=== PATIENT | female | born 1985 | race American Indian/Alaskan Native ===

== ENCOUNTER 2016-09-02 12:33 | Emergency (ER) | payer SELFPAY ==
[2016-09-02 12:52] VITALS: BP 137/79
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
[2016-09-02 13:37] LABS: Creatine Kinase MB 1.3 ng/mL (0.0-4.0)
[2016-09-02 13:38] LABS: Creatine Kinase 266 units/L (30-135)
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
[2016-09-02] MEDS ORDERED: MOTRIN PO ONE (14:44)
[2016-09-02 14:54] LABS: Bilirubin,Urine NEG (Negative); Blood,Urine NEG (Negative); Ketones,Urine NEG (Negative); Leukocyte Esterase,Urine NEG (Negative); Mucus,Urine FEW /HPF; Nitrite,Urine NEG (Negative); Protein,Urine <15 mg/dL mg/dL (Negative); Urobilinogen,Urine < 2.0 mg/dL (<2.0)
== END 2016-09-02 16:20 | disposition home or self-care (01) ==
LOC: ED 12:33
DX: M54.5 Low back pain (principal); V49.49XA Driver injured in collision with other motor vehicles in traffic accident, initial encounter; Y93.9 Activity, unspecified; Y92.9 Unspecified place or not applicable; Y99.9 Unspecified external cause status
CPT/HCPCS: 36415; 81001; 81025; 82550; 82553; 84484; 93005; 93010; 99283

== ENCOUNTER 2018-01-01 08:11 | Emergency (ER) | payer MEDICAID ==
[2018-01-01 08:17] VITALS: BP 123/81
[2018-01-01] MEDS ORDERED: MOTRIN PO ONE (08:21)
--- NOTE | 2018-01-01 09:12 | XRay Report ---
RIGHT HIP, 2 views: History: Right hip pain. The bony architecture is intact without evidence of fracture or dislocation. No significant soft tissue abnormality is seen. IMPRESSION: Normal right hip.
--- NOTE | 2018-01-01 09:26 | Emergency Department Report ---
ED Back Pain/Injury HPI - General Chief Complaint: Extremity Problem,Nontraumatic Stated Complaint: RIGHT HIP PAIN Time Seen by Provider: 01/01/18 08:20 Source: patient Limitations: No Limitations - History of Present Illness Initial Comments: This is a 32-year-old female nontoxic, well nourished in appearance, no acute signs of distress presents to the ED with c/o of acute on chronic lower back pain. Patient denies ever being diagnosed with sciatica. Patient states that pain radiates through to her left hip down to left lower extremity. PAtient stated it makes her leg have a tingling sensation. Patient denies any trauma. Denies any bladder or bowel instability. Patient denies any urinary symptoms. Denies any fever, chills, nausea, vomiting, headache, stiff neck, chest pain or shortness of breath. Patient denies any numbness or tingling. Denies any allergies. Denies significant past medical history. MD Complaint: back pain -: week(s) (2) Similar Symptoms Previously: Yes Radiation: left leg Severity: mild Severity scale (0 -10): 8 Quality: aching Consistency: intermittent Improves With: immobilization, supine, sitting upright Worsens With: movement Associated Symptoms: denies other symptoms. denies: confusion, weakness, chest pain, numbness, difficulty walking, cough, difficulty urinating, diaphoresis, incontinence, fever/chills, constipation, headaches, abdominal pain, loss of appetite, malaise, nausea/vomiting, rash, seizure, shortness of breath, syncope - Related Data Previous Rx's Medication Instructions Recorded Last Taken Type HYDROcodone/APAP 5-325 [[place] 1 each PO Q6HR PRN #10 tablet 10/11/13 Unknown Rx 5-325 mg TAB] Ibuprofen [Motrin] 800 mg PO Q8H PRN #20 tablet 10/11/13 Unknown Rx Sulfamethoxazole/Trimethoprim 1 each PO BID #14 tablet 10/11/13 Unknown Rx [Bactrim Ds] Naproxen [Naprosyn TAB] 500 mg PO BID #30 tablet 09/02/16 Unknown Rx methOCARBAMOL [Robaxin TAB] 500 mg PO BID #30 tab 09/02/16 Unknown Rx Cyclobenzaprine [Flexeril] 10 mg PO QHS PRN #10 tablet 01/01/18 Unknown Rx Ibuprofen [Motrin] 600 mg PO Q8H PRN #30 tablet 01/01/18 Unknown Rx Allergies Allergy/AdvReac Type Severity Reaction Status Date / Time No Known Allergies Allergy Unverified 10/11/13 19:09 ED Review of Systems ROS: Stated complaint: RIGHT HIP PAIN Other details as noted in HPI Constitutional: denies: chills, fever Eyes: denies: eye pain, eye discharge, vision change ENT: denies: ear pain, throat pain Respiratory: denies: cough, shortness of breath, wheezing Cardiovascular: denies: chest pain, palpitations Endocrine: no symptoms reported Gastrointestinal: denies: abdominal pain, nausea, diarrhea Genitourinary: denies: urgency, dysuria, discharge Musculoskeletal: denies: back pain, joint swelling, arthralgia Skin: denies: rash, lesions Neurological: denies: headache, weakness, paresthesias Psychiatric: denies: anxiety, depression Hematological/Lymphatic: denies: easy bleeding, easy bruising ED Past Medical Hx - Past Medical History Previous Medical History?: Yes Hx Headaches / Migraines: Yes - Surgical History Past Surgical History?: Yes Additional Surgical History: ganglion removal left hand - Social History Smoking Status: Former Smoker Substance Use Type: None - Medications Home Medications: Home Medications Medication Instructions Recorded Confirmed Last Taken Type HYDROcodone/APAP 5-325 [[place] 1 each PO Q6HR PRN #10 tablet 10/11/13 Unknown Rx 5-325 mg TAB] Ibuprofen [Motrin] 800 mg PO Q8H PRN #20 tablet 10/11/13 Unknown Rx Sulfamethoxazole/Trimethoprim 1 each PO BID #14 tablet 10/11/13 Unknown Rx [Bactrim Ds] Naproxen [Naprosyn TAB] 500 mg PO BID #30 tablet 09/02/16 Unknown Rx methOCARBAMOL [Robaxin TAB] 500 mg PO BID #30 tab 09/02/16 Unknown Rx Cyclobenzaprine [Flexeril] 10 mg PO QHS PRN #10 tablet 01/01/18 Unknown Rx Ibuprofen [Motrin] 600 mg PO Q8H PRN #30 tablet 01/01/18 Unknown Rx ED Physical Exam - General Limitations: No Limitations General appearance: alert, in no apparent distress - Head Head exam: Present: atraumatic, normocephalic - Eye Eye exam: Present: normal appearance - ENT ENT exam: Present: normal exam, mucous membranes moist - Neck Neck exam: Present: normal inspection, full ROM. Absent: tenderness, meningismus, lymphadenopathy - Respiratory Respiratory exam: Present: normal lung sounds bilaterally. Absent: respiratory distress, wheezes, rales, rhonchi, stridor, chest wall tenderness, accessory muscle use, decreased breath sounds, prolonged expiratory - Cardiovascular Cardiovascular Exam: Present: regular rate, normal rhythm, normal heart sounds. Absent: bradycardia, tachycardia, irregular rhythm, systolic murmur, diastolic murmur, rubs, gallop - GI/Abdominal GI/Abdominal exam: Present: soft, normal bowel sounds. Absent: distended, tenderness, guarding, rebound, rigid, diminished bowel sounds - Extremities Exam Extremities exam: Present: normal inspection, full ROM, normal capillary refill. Absent: tenderness, joint swelling, calf tenderness - Expanded Lower Extremity Exam Left Hip exam: Present: normal inspection, full ROM, external rotation, internal rotation, pelvic stability. Absent: tenderness, swelling, abrasion, laceration , ecchymosis, deformity, crepidus, dislocation, erythema, shortening Upper Leg exam: Present: normal inspection, full ROM. Absent: tenderness, swelling, abrasion, laceration, ecchymosis, deformity, crepidus, dislocation, erythema Knee exam: Present: normal inspection, full ROM, full knee extension. Absent: tenderness, swelling, abrasion, laceration, ecchymosis, deformity, crepidus, dislocation, erythema, effusion, pain w/ pronation/supination, posterior draw sign, pain/laxity with valgus, pain/laxity with varus Lower Leg exam: Present: normal inspection, full ROM. Absent: tenderness, swelling, abrasion, laceration, ecchymosis, deformity, crepidus, dislocation, erythema, palpable cord, Ayana's sign Ankle exam: Present: normal inspection, full ROM. Absent: tenderness, swelling , abrasion, laceration, ecchymosis, deformity, crepidus, dislocation, erythema, anterior draw sign Foot/Toe exam: Present: normal inspection, full ROM. Absent: tenderness, swelling, abrasion, laceration, ecchymosis, deformity, crepidus, dislocation, erythema, amputation, puncture wound, foreign body, calcaneal tenderness, tenderness at base of 5th metatarsal, nail avulsion, subungual hematoma Neuro vascular tendon exam: Present: no vascular compromise. Absent: pulse deficit, abnormal cap refill, motor deficit, sensory deficit, tendon deficit, extremity cold to touch, pallor, abnormal 2-point discrimination, decreased fine /light touch, foot drop, peroneal nerve deficit, significant pain with passive ROM of distal joint Gait: Positive: observed and normal - Back Exam Back exam: Present: normal inspection, full ROM, paraspinal tenderness (lumbar paraspinal area). Absent: tenderness, CVA tenderness (R), CVA tenderness (L), muscle spasm, vertebral tenderness, rash noted - Expanded Back Exam Expanded Back exam: Absent: saddle anesthesia Back exam: Negative Straight Leg Raising: Right, Left - Neurological Exam Neurological exam: Present: alert, oriented X3, normal gait - Psychiatric Psychiatric exam: Present: normal affect, normal mood - Skin Skin exam: Present: warm, dry, intact, normal color. Absent: rash ED Course Vital Signs 01/01/18 01/01/18 08:13 08:35 Temperature 98.2 F Pulse Rate 69 Respiratory 18 18 Rate Blood Pressure 123/81 O2 Sat by Pulse 100 Oximetry - Reevaluation(s) Reevaluation #1: 01/01/18 09:26 Patient is speaking in full sentences with no signs of distress noted. ED Medical Decision Making - Medical Decision Making This is a 32-year-old female that presents with low back strain with sciatica. Patient is stable was examined by me. There is no spinal tenderness. There is no cauda equina syndrome during examination. No bladder or bowel instability. US doppler of RLE and xray of hip within normal limits. PAtient is notifeid of the results with no questions noted. Patient received Motrin 800 mg in the ED which stated her symptoms has resolved and subsided. Patient is discharged with muscle relaxant and Motrin. Patient was instructed not to operate any machinery while taking muscle relaxant as they cause her drowsiness. Patient was referred to Follow-up with a primary care doctor in 3-5 days or if symptoms worsen and continue return to emergency room as soon as possible. At time of discharge, the patient does not seem toxic or ill in appearance. No acute signs of distress noted. Patient agrees to discharge treatment plan of care. No further questions noted by the patient. This chart is dictated with using [employer] Critical care attestation.: If time is entered above; I have spent that time in minutes in the direct care of this critically ill patient, excluding procedure time. ED Disposition Clinical Impression: Low back strain Qualifiers: Encounter type: initial encounter Qualified Code(s): S39.012A - Strain of muscle, fascia and tendon of lower back, initial encounter Sciatica Qualifiers: Laterality: left Qualified Code(s): M54.32 - Sciatica, left side Disposition: TO HOME OR SELFCARE Is pt being admited?: No Does the pt Need Aspirin: No Condition: Stable Instructions: Low Back Strain (ED), Cyclobenzaprine (By mouth), Ibuprofen (By mouth), Sciatica (ED) Additional Instructions: Follow-up with your primary care doctor in 3-5 days or if symptoms worsen such as bladder or bowel stability, chest pain, short of breath, numbness or tingling sensation in extremities, headache, dizziness, visual changes, nausea vomiting, or abdominal pain, return back to emergency room as was possible. Take ibuprofen and Flexeril as prescribed. Do not operate heavy machinery while taking Flexeril due to sedation Prescriptions: Cyclobenzaprine [Flexeril] 10 mg PO QHS PRN #10 tablet PRN Reason: Muscle Spasm Ibuprofen [Motrin] 600 mg PO Q8H PRN #30 tablet PRN Reason: Pain Referrals: PRIMARY CAREMD [Primary Care Provider] - 3-5 Days XIN PACHECO MD [Staff Physician] - 3-5 Days [facility] [Outside] - 3-5 Days [facility] [Outside] - 3-5 Days Forms: Work/School Release Form(ED)
== END 2018-01-01 09:43 | disposition home or self-care (01) ==
LOC: ED 08:11
DX: S39.012A Strain of muscle, fascia and tendon of lower back, initial encounter (principal); M54.42 Lumbago with sciatica, left side; G43.909 Migraine, unspecified, not intractable, without status migrainosus; Z87.891 Personal history of nicotine dependence; X58.XXXA Exposure to other specified factors, initial encounter; Y93.89 Activity, other specified; Y92.89 Other specified places as the place of occurrence of the external cause; Y99.8 Other external cause status
CPT/HCPCS: 99284

== ENCOUNTER 2021-05-26 17:28 | Emergency (ER) | payer MEDICAID ==
[2021-05-26] MEDS ORDERED: dexAMETHasone 20 MG/5 ML VIAL IV ONE ×2 (20:16→23:13)
[2021-05-26] MEDS ORDERED: METOCLOPRAMIDE 10 MG/2 ML INJ IV ONE (20:16)
[2021-05-26] MEDS ORDERED: KETOROLAC 30 MG/1 ML INJ IV ONE (20:16)
--- NOTE | 2021-05-26 20:27 | Emergency Department Report ---
<ZEENAT GILLETTE - Last Filed: 05/26/21 20:30> ED Headache HPI - General Chief Complaint: Headache Stated Complaint: HEADACHE/ PREG TEST - History of Present Illness Initial Comments: 32-year-old -Omani male presents to the emergency any vomiting x4 days. Patient states diabetes. States her last migraine was 1 year ago. She reports photophobia. Patient taken ibuprofen or naproxen. Followed by [facility]. Last menstrual period 05/20/2021. 3 para 2. Timing/Duration: other (5 day) Head Injury Location: temporal Recent Head Trauma: no recent headache/trauma Modifying Factors: improves with: exposure to light Associated Symptoms: nausea/vomiting. denies: fever/chills Allergies/Adverse Reactions: Allergies hydrocodone Allergy (Verified 05/26/21 17:39) Hives Home Medications: Ambulatory Orders HYDROcodone/APAP 5-325 [[place] 5-325 mg TAB] 1 each PO Q6HR PRN #10 tablet 10/11/13 Ibuprofen [Motrin] 800 mg PO Q8H PRN #20 tablet 10/11/13 Sulfamethoxazole/Trimethoprim [Bactrim Ds] 1 each PO BID #14 tablet 10/11/13 Naproxen [Naprosyn TAB] 500 mg PO BID #30 tablet 09/02/16 methOCARBAMOL [Robaxin TAB] 500 mg PO BID #30 tab 09/02/16 Cyclobenzaprine [Flexeril] 10 mg PO QHS PRN #10 tablet 01/01/18 Ibuprofen [Motrin] 600 mg PO Q8H PRN #30 tablet 01/01/18 Butalb/Acetamin/Caff 50-325-40 [Fioricet 50-325-40] 1 - 2 tab PO Q6HR PRN #15 tab 05/27/21 Ketorolac [Toradol] 10 mg PO Q8H PRN #20 tablet 05/27/21 Promethazine [Phenergan] 25 mg PO Q6HR PRN #30 tab 05/27/21 Sulfamethoxazole/Trimethoprim [Bactrim DS TAB] 1 each PO Q12H #20 tablet 05/27/21 ED Review of Systems Comment: All other systems reviewed and negative ED Past Medical Hx - Past Medical History Hx Headaches / Migraines: Yes - Surgical History Additional Surgical History: ganglion removal left EYELID - Social History Smoking Status: Former Smoker Substance Use Type: None - Medications Home Medications: Home Medications Medication Instructions Recorded Confirmed Last Taken Type HYDROcodone/APAP 5-325 [[place] 1 each PO Q6HR PRN #10 tablet 10/11/13 Unknown Rx 5-325 mg TAB] Ibuprofen [Motrin] 800 mg PO Q8H PRN #20 tablet 10/11/13 Unknown Rx Sulfamethoxazole/Trimethoprim 1 each PO BID #14 tablet 10/11/13 Unknown Rx [Bactrim Ds] Naproxen [Naprosyn TAB] 500 mg PO BID #30 tablet 09/02/16 Unknown Rx methOCARBAMOL [Robaxin TAB] 500 mg PO BID #30 tab 09/02/16 Unknown Rx Cyclobenzaprine [Flexeril] 10 mg PO QHS PRN #10 tablet 01/01/18 Unknown Rx Ibuprofen [Motrin] 600 mg PO Q8H PRN #30 tablet 01/01/18 Unknown Rx Butalb/Acetamin/Caff 50-325-40 1 - 2 tab PO Q6HR PRN #15 tab 05/27/21 Unknown Rx [Fioricet 50-325-40] Ketorolac [Toradol] 10 mg PO Q8H PRN #20 tablet 05/27/21 Unknown Rx Promethazine [Phenergan] 25 mg PO Q6HR PRN #30 tab 05/27/21 Unknown Rx Sulfamethoxazole/Trimethoprim 1 each PO Q12H #20 tablet 05/27/21 Unknown Rx [Bactrim DS TAB] ED Physical Exam - General Limitations: No Limitations General appearance: alert, in no apparent distress - Head Head exam: Present: atraumatic, normocephalic - Eye Eye exam: Present: normal appearance - Neck Neck exam: Present: full ROM - Respiratory Respiratory exam: Present: normal lung sounds bilaterally. Absent: respiratory distress - Cardiovascular Cardiovascular Exam: Present: regular rate, normal rhythm. Absent: systolic murmur, diastolic murmur, rubs, gallop - GI/Abdominal GI/Abdominal exam: Present: soft, normal bowel sounds - Extremities Exam Extremities exam: Present: normal inspection, full ROM - Neurological Exam Neurological exam: Present: alert, oriented X3 - Expanded Neurological Exam Expanded Cranial nerves: EOM's Intact: Normal, Gag Reflex: Normal, Tongue Deviation: Normal, Nystagmus: Normal, Facial Sensation: Normal, Facial Palsy with Forehead Movement: Normal, Facial Palsy without Forehead Movement: Normal Cerebellar function: Finger to Nose: Normal, Heel to Snowden: Normal, Romberg: Normal Upper motor neuron: Alfonzo Neglect: Normal, Pronator Drift: Normal, Babinski Sign: Normal, Sensory Extinction: Normal Sensory exam: Upper Extremity Light Touch: Normal, Upper Extremity Pin Prick: Normal, Upper Extremity Temperature: Normal, UE 2 Point Discrimination: Normal, Lower Extremity Light Touch: Normal, Lower Extremity Pin Prick: Normal, Lower Extremity Temperature: Normal, LE 2 Point Discrimination: Normal Motor strength exam: RUE: 4, LUE: 4, RLE: 4, LLE: 4 Best Eye Response ([place]): (4) open spontaneously Best Motor Response ([place]): (6) obeys commands Best Verbal Response ([place]): (5) oriented [place] Total: 15 - Psychiatric Psychiatric exam: Present: normal affect, normal mood - Skin Skin exam: Present: warm, dry, intact, normal color. Absent: rash ED Medical Decision Making - Medical Decision Making 32-year-old -Omani male presents to the emergency any vomiting x4 days. Patient states diabetes. States her last migraine was 1 year ago. She reports photophobia. Patient taken ibuprofen or naproxen. Followed by [facility]. Last menstrual period 05/20/2021. 3 para 2. Dexamethasone 10 mg IV, Reglan 10 mg IV and Toradol 15 mg IV. ED Disposition Clinical Impression: Nausea and vomiting in adult, Acute urinary tract infection Migraine headache without aura Qualifiers: Status migrainosus presence: with status migrainosus Intractability: not intractable Qualified Code(s): G43.001 - Migraine without aura, not intractable, with status migrainosus Disposition: HOME / SELF CARE / HOMELESS Condition: Stable Instructions: Recurrent Migraine Headache, [id number], Nausea and Vomiting, Adult, [id number], Urinary Tract Infection, Adult, [id number] Additional Instructions: Take medication with food, drink plenty of fluids and follow-up with your primary care physician in 7 to 10 days for reevaluation. Return to the ED immediately if symptoms get worse. Prescriptions: Sulfamethoxazole/Trimethoprim [Bactrim DS TAB] 1 each PO Q12H #20 tablet Butalb/Acetamin/Caff 50-325-40 [Fioricet 50-325-40] 1 - 2 tab PO Q6HR PRN #15 tab PRN Reason: Headache Promethazine [Phenergan] 25 mg PO Q6HR PRN #30 tab PRN Reason: Nausea Ketorolac [Toradol] 10 mg PO Q8H PRN #20 tablet PRN Reason: Pain Referrals: [facility] [Provider Group] - 7-10 days Print Language: SCOTTISH <URIEL LOPEZ - Last Filed: 05/27/21 00:49> ED Review of Systems ROS: Stated complaint: HEADACHE/ PREG TEST Other details as noted in HPI ED Course Vital Signs 05/26/21 17:44 Temperature 98.3 F Pulse Rate 88 Respiratory 20 Rate Blood Pressure 139/96 [Right] O2 Sat by Pulse 100 Oximetry ED Medical Decision Making - Medical Decision Making I assumed care of the patient from my colleague Ms. Kerry GUTIÉRREZ at shift change at 2100 hrs. Patient has a history of chronic migraine headaches and presented to the ED with persistent severe headache with nausea and vomiting which she describes as typical of her chronic migraine exacerbations. In the ED, patient is alert and oriented x3 and is not in any distress. Patient however appears to be in significant pain. Patient was treated for pain in the ED and urinalysis showed significant urinary tract infection for which she was treated in the ED with Rocephin 1 g IV x1. On reevaluation, patient's headache improved significantly, and patient has not had any nausea or vomiting in the ED. Patient will discharge home on pain medications, antiemetics and antibiotics and advised to follow-up with her primary care physician in 7 to 10 days for reevaluation. Patient was otherwise advised return to the ED immediately if symptoms get worse. - Differential Diagnosis Migraine headache; sinusitis; sinus headache; tension headache; UTI Critical care attestation.: If time is entered above; I have spent that time in minutes in the direct care of this critically ill patient, excluding procedure time. ED Disposition Is pt being admited?: No Does the pt Need Aspirin: No Time of Disposition: 00:46
[2021-05-26] MEDS ORDERED: diphenhydrAMINE 50 MG/ML VIAL IV ONE (22:09)
[2021-05-26 22:41] LABS: HCG Qualitative,Urine Negative (Negative)
[2021-05-26 22:46] LABS: Bilirubin,Urine NEG (Negative); Blood,Urine NEG (Negative); Color,Urine Yellow (Yellow); Mucus,Urine 3+ /HPF; Protein,Urine <15 mg/dL mg/dL (Negative); Urobilinogen,Urine < 2.0 mg/dL (<2.0)
[2021-05-26] MEDS ORDERED: KETOROLAC 30 MG/1 ML INJ ONE ×2 (23:08→23:09)
[2021-05-26] MEDS ORDERED: METOCLOPRAMIDE 10 MG/2 ML INJ ONE (23:08)
[2021-05-26] MEDS ORDERED: cefTRIAXone/NS 1 GM/50 ML 1 GM/50 ML BAG IV ONE (23:55)
[2021-05-27 01:10] VITALS: BP 134/91
== END 2021-05-27 00:55 | disposition home or self-care (01) ==
LOC: ED 17:28
DX: R11.2 Nausea with vomiting, unspecified (principal); N39.0 Urinary tract infection, site not specified; G43.001 Migraine without aura, not intractable, with status migrainosus; Z87.891 Personal history of nicotine dependence
CPT/HCPCS: 81001; 81025; 96365; 96375; 99283; J0696; J1100; J1200; J1885; J2765